=== PATIENT | male | born 1980 | race Hispanic/Latino ===

== ENCOUNTER 2025-07-01 08:18 | Emergency (ER) | payer BC ==
[~2025-07-01] VITALS: Ht 172.7 cm; Wt 117.5 kg
[2025-07-01 08:37] VITALS: TEMP 98.8
[2025-07-01] MEDS: SODIUM CHLORIDE 0.9% 1000ML 1,000 ML IV ONE (09:05)
[2025-07-01 09:18] LABS: BASOPHILS % 0.4 % (0.0-1.0); EOSINOPHILS % 3.9 % (0.0-6.0); LYMPHOCYTES % 23.5 % (18.0-39.1); MONOCYTES % 8.2 % (4.4-11.3); NEUTROPHILS % 63.9 % (38.7-80.0); RED CELL DISTRIBUTION WIDTH 12.3 % (11.7-14.4)
[2025-07-01 09:38] LABS: INR 0.96
[2025-07-01 09:46] LABS: EST GLOMERULAR FILTRATION RATE 90.0 ML/MIN (>=60)
[2025-07-01] MEDS ORDERED: KETOROLAC TROMETHAMINE 30 MG/ML VIAL IV STA (10:16)
[2025-07-01] MEDS ORDERED: ACETAMINOPHEN 325 MG TAB PO ONE (10:30)
[2025-07-01 11:50] VITALS: PULSE 60; RESP 16
[2025-07-01 12:28] VITALS: BP 124/85; PULSE 60; RESP 16; O2SAT 98
== END 2025-07-01 12:16 | disposition home or self-care (01) ==
LOC: ER 08:25
DX: R51.9 Headache, unspecified (principal); H53.8 Other visual disturbances; R94.31 Abnormal electrocardiogram [ECG] [EKG]
CPT/HCPCS: 36415; 70450; 80053; 84484; 85025; 85610; 85730; 93005; 99284; J7030